=== PATIENT | female | born 1985 | race Asian ===

== ENCOUNTER 2016-09-01 02:30 | Emergency (ER) | payer OTHER ==
[~2016-09-01] VITALS: Ht 157.5 cm; Wt 61.2 kg
[~2016-09-01 02:30] MED LIST: AUGMENTIN 875-1 EAC1 ORAL
[2016-09-01] MEDS ORDERED: NKM (03:08)
[2016-09-01] MEDS ORDERED: Ketorolac 30mg Inj IV ONE (03:30)
[2016-09-01] MEDS ORDERED: Tubing IV Cassette IV ONE (03:35)
[2016-09-01 04:11] LABS: APPEARANCE,URINE CLEAR; KETONES,URINE NEGATIVE (NEGATIVE); LEUKOCYTE ESTERASE ,URINE NEGATIVE (NEGATIVE); NITRITE,URINE NEGATIVE (NEGATIVE); PH,URINE 6 (4.5-8.0); PROTEIN,URINE NEGATIVE (NEGATIVE); UROBILINOGEN,URINE NORMAL MG/DL (0.0-1.0)
[2016-09-01 04:12] LABS: BASOPHILS % (AUTO) 1.5 % (0.0-2.0); EOSINOPHILS % (AUTO) 3.2 % (0.0-3.0); LYMPHOCYTES % (AUTO) 40.6 % (20.0-45.0); MEAN CORPUSCULAR HEMOGLOBIN 29.8 PG (27.0-31.0); MEAN CORPUSCULAR HGB CONC 32.3 G/DL (32.0-36.0); MEAN CORPUSCULAR VOLUME 92 FL (80-99); MEAN PLATELET VOLUME 6.7 FL (6.5-10.1); MONOCYTES % (AUTO) 7.3 % (1.0-10.0); NEUTROPHILS % (AUTO) 47.4 % (45.0-75.0); PLATELET COUNT 327 K/UL (150-450); RED BLOOD COUNT 4.31 M/UL (4.20-5.40); RED CELL DISTRIBUTION WIDTH 11.4 % (11.6-14.8); WHITE BLOOD COUNT 8.1 K/UL (4.8-10.8)
[2016-09-01 04:23] LABS: ALANINE AMINOTRANSFERASE 35 U/L (3-33); ALBUMIN/GLOBULIN RATIO 1.2 (1.0-2.7); ANION GAP 14 (5-15); ASPARTATE AMINO TRANSFERASE 22 U/L (5-40); CALCIUM 8.8 mg/dL (8.6-10.2); CARBON DIOXIDE 26 mEQ/L (20-30); CHLORIDE 96 mEQ/L (98-107); CREATININE 0.6 mg/dL (0.5-0.9); GLOMERULAR FILTRATION RATE > 60 mL/min (>60); HEMOLYSIS 2; LIPASE 14 U/L (< 60); POTASSIUM 3.8 mEQ/L (3.4-4.9); SODIUM 136 mEQ/L (135-145); TOTAL PROTEIN 7.3 g/dL (6.6-8.7)
[2016-09-01 04:55] VITALS: BP 110/73
[2016-09-01] MEDS ORDERED: ZOFRAN4 MG ORAL (05:08)
--- NOTE | 2016-09-01 05:08 | Emergency Room Report ---
History of Present Illness General Chief Complaint: Nausea, Vomiting, and Diarrhea Source: Patient Present Illness HPI This is a 31-year-old female with no significant past medical history. She presents with chief complaint abdominal pain and vomiting. Onset for last few days. No diarrhea. No fever or chills. About 10 days ago she has some runny nose and congestion. It seemed to get better but now she is GI symptom. Has been beginning to get the same. Pain is mostly in the left side. Crampy in nature. No urinary complaint. No vaginal bleeding. Allergies: Coded Allergies: NO KNOWN ALLERGIES (Unverified Allergy, Unknown, 02/28/15) Patient History Past Medical History: none, see triage record, old chart reviewed Past Surgical History: none, other - blt Pertinent Family History: none Last Menstrual Period: 08/18/16 Now: No : 2 Para: 2 Immunizations: other Reviewed Nursing Documentation: PMH: Agreed, PSxH: Agreed Nursing Documentation-PMH Past Medical History: No Stated History Review of Systems Eye: Denies: blurred vision, eye pain ENT: Denies: ear pain, nose congestion, throat swelling Respiratory: Denies: cough, shortness of breath Cardiovascular: Denies: chest pain, palpitations Gastrointestinal: Reports: abdominal pain, nausea, vomiting, Denies: diarrhea Musculoskeletal: Denies: back pain, joint pain Skin: Denies: rash Neurological: Denies: headache, numbness Endocrine: Denies: increased thirst, increased urine Hematologic/Lymphatic: Denies: easy bruising All Other Systems: negative except mentioned in HPI Physical Exam Vital Signs Date Time Temp Pulse Resp B/P Pulse Ox O2 Delivery O2 Flow Rate FiO2 09/01/16 03:03 97.7 62 14 120/69 96 Room Air vitals normal. Sp02 EP Interpretation: reviewed, normal General Appearance: well appearing, no apparent distress, alert Head: normocephalic, atraumatic Eyes: bilateral eye EOMI, bilateral eye PERRL ENT: hearing grossly normal, normal pharynx Neck: full range of motion, supple, no meningismus Respiratory: chest non-tender, lungs clear, normal breath sounds Cardiovascular #1: regular rate, rhythm, no murmur Gastrointestinal: normal bowel sounds, no mass, no organomegaly, no bruit, non- distended, tenderness - LLQ Musculoskeletal: back normal, gait/station normal, normal range of motion Neurologic: alert, oriented x3 Psychiatric: mood/affect normal Skin: warm/dry Medical Decision Making Diagnostic Impression: Primary Impression: Abdominal pain Qualified Codes: R10.30 - Lower abdominal pain, unspecified Additional Impression: Vomiting Qualified Codes: R11.2 - Nausea with vomiting, unspecified ER Course Patient presents with nonspecific abdominal pain with vomiting. Most likely a viral gastroenteritis since her is coming down with the same symptoms. No evidence of acute abdomen. No evidence of obstruction. No surgical issue. Labs unremarkable. Patient felt better. We'll discharge him. Lab Results Impression labs normal CT/MRI/US Diagnostic Results CT/MRI/US Diagnostic Results : Imaging Test Ordered: ct a/p Impression read by radiologist as neg Last Vital Signs Date Time Temp Pulse Resp B/P Pulse Ox O2 Delivery O2 Flow Rate FiO2 09/01/16 04:55 71 14 110/73 100 Room Air 09/01/16 04:07 97.7 Status: improved Disposition: HOME, SELF-CARE Condition: Stable Scripts Ondansetron (Zofran) 4 Mg Tablet 4 MG ORAL Q6H Y for Nausea & Vomiting, #15 TAB 0 Refills Prov: DARION TAPIA M.D. 09/01/16 Patient Instructions: DIET, Vomiting or Diarrhea [6yr-Adult] Additional Instructions: Followup with your DrFranck in 2-3 days. Return if worse. DARION TAPIA M.D. Sep 01, 2016 05:08
[2016-09-01 05:23] VITALS: BP 110/73
--- NOTE | 2016-09-01 08:41 | Diagnostic Imaging Report ---
Indication: Abdominal pain Technique: Continuous helical transaxial imaging of the abdomen and pelvis was obtained from the lung bases to the pubic symphysis. No intravenous contrast was administered. Coronal 2-D reformats were also obtained. Total Dose length Product (DLP): [address] Dose Index Volume (CTDIvol): 14 mGy Comparison: none Findings: The lung bases are clear. Gallbladder is unremarkable in appearance. Accessory spleen noted. No nephrolithiasis or hydronephrosis demonstrated. Small nodes noted in the mesentery nonspecific. These are noted in the right lower quadrant. Appendix not visualized. No inflammatory changes identified to suggest acute appendicitis. There may be mild thickening of the wall the urinary bladder. Uterus noted. No free fluid identified. Impression: No acute findings appreciated. Incidental findings as discussed above. [facility] has communicated the preliminary results to the Emergency Department. Their findings are largely concordant with this report. The CT scanner at [facility] is accredited by the [employer] and the scans are performed using protocols designed to limit radiation exposure to as low as reasonably achievable to attain images of sufficient resolution adequate for diagnostic evaluation.
== END 2016-09-01 05:24 | disposition home or self-care (01) ==
LOC: EMR 03:32
DX: R10.9 Unspecified abdominal pain (principal); R11.2 Nausea with vomiting, unspecified
CPT/HCPCS: 36415; 74176; 80053; 81003; 81025; 83690; 85025; 96361; 96374; 96375; 99284; J1885; J2405

== ENCOUNTER 2016-11-16 20:54 | Emergency (ER) | payer MEDICAID, OTHER ==
[~2016-11-16] VITALS: Ht 157.5 cm; Wt 65.8 kg
[~2016-11-16 20:54] MED LIST changes: +NKM; +ZOFRAN4 MG ORAL
[2016-11-16] MEDS ORDERED: Norco 5mg/325mg tab ORAL ONE (22:15)
[2016-11-16] MEDS ORDERED: IBUPROFEN600 MG ORAL (22:16)
[2016-11-16] MEDS ORDERED: AUGMENTIN 875-1 EAC1 ORAL (22:16)
--- NOTE | 2016-11-16 22:17 | Emergency Room Report ---
History of Present Illness General Chief Complaint: Animal Bite Source: Patient Present Illness HPI Is a 31-year-old female with no past medical history. She presents with chief complaint of dog bite. She was walking with her significant other and a Labrador in the apartment unit better. She sustained a bite Mathew to the left lower back and over the left buttock. No bleeding. Pain to that area. Is a neighbor dog. The dog immunization status is unknown. The dog was not on a leash. Her tetanus is up-to-date. Allergies: Coded Allergies: NO KNOWN ALLERGIES (Unverified Allergy, Unknown, 02/28/15) Patient History Past Medical History: none, see triage record, old chart reviewed Past Surgical History: none Pertinent Family History: none Social History: Denies: smoking Now: No Immunizations: other Reviewed Nursing Documentation: PMH: Agreed, PSxH: Agreed Nursing Documentation-PMH Past Medical History: No Stated History Review of Systems Eye: Denies: blurred vision, eye pain ENT: Denies: ear pain, nose congestion, throat swelling Respiratory: Denies: cough, shortness of breath Cardiovascular: Denies: chest pain, palpitations Gastrointestinal: Denies: abdominal pain, diarrhea, nausea, vomiting Musculoskeletal: Denies: back pain, joint pain Skin: Denies: rash Neurological: Denies: headache, numbness Endocrine: Denies: increased thirst, increased urine Hematologic/Lymphatic: Denies: easy bruising All Other Systems: negative except mentioned in HPI Physical Exam Vital Signs Date Time Temp Pulse Resp B/P Pulse Ox O2 Delivery O2 Flow Rate FiO2 11/16/16 22:08 98.1 80 16 118/84 99 Room Air vitals normal Sp02 EP Interpretation: reviewed, normal General Appearance: well appearing, no apparent distress, alert Head: normocephalic, atraumatic Eyes: bilateral eye EOMI, bilateral eye PERRL ENT: hearing grossly normal, normal pharynx Neck: full range of motion, supple, no meningismus Respiratory: chest non-tender, lungs clear, normal breath sounds Cardiovascular #1: regular rate, rhythm, no murmur Gastrointestinal: normal bowel sounds, non tender, no mass, no organomegaly, no bruit, non-distended Musculoskeletal: back normal, gait/station normal, normal range of motion, other - abrasion and superficial pichardo on left lower flank. Abrasion to left inferior buttock. Psychiatric: mood/affect normal Skin: warm/dry Medical Decision Making Diagnostic Impression: Primary Impression: Dog bite of buttock Qualified Codes: S31.825A - Open bite of left buttock, initial encounter; W54.0XXA - Bitten by dog, initial encounter Additional Impression: Dog bite of trunk Qualified Codes: S21.95XA - Open bite of unspecified part of thorax, initial encounter; W54.0XXA - Bitten by dog, initial encounter ER Course Patient presents with superficial dog bite to her back and buttock. No need for laceration. Low risk for infection. The family at low risk for rabies. Animal control already called by patient. Her tetanus status up-to-date. Discharge home. Last Vital Signs Date Time Temp Pulse Resp B/P Pulse Ox O2 Delivery O2 Flow Rate FiO2 11/16/16 22:08 98.1 80 16 118/84 99 Room Air Status: improved Disposition: HOME, SELF-CARE Condition: Stable Scripts Ibuprofen* (MOTRIN*) 600 Mg Tablet 600 MG ORAL THREE TIMES A DAY, #30 TAB 0 Refills Prov: DARION TAPIA M.D. 11/16/16 Amoxicillin/Potassium Clav 875-125* (AUGMENTIN 875-125 TABLET*) 1 Each Tablet 1 TAB ORAL TWICE A DAY, #14 TAB Prov: DARION TAPIA M.D. 11/16/16 Patient Instructions: Animal Bite Additional Instructions: Keep wound clean. Followup with your DrFranck in 7 days. Return if worse. DARION TAPIA M.D. Nov 16, 2016 22:17
[2016-11-16 22:58] VITALS: BP 118/84
[2016-11-16 23:00] VITALS: BP 116/72
== END 2016-11-16 22:37 | disposition home or self-care (01) ==
LOC: EMR 22:16
DX: S31.825A Open bite of left buttock, initial encounter (principal); S21.95XA Open bite of unspecified part of thorax, initial encounter; X58.XXXA Exposure to other specified factors, initial encounter; Y93.K1 Activity, walking an animal; Y92.038 Other place in apartment as the place of occurrence of the external cause
CPT/HCPCS: 99284

== ENCOUNTER 2017-09-03 12:18 | Emergency (ER) | payer MEDICAID ==
[~2017-09-03] VITALS: Ht 157.5 cm; Wt 64.0 kg
[~2017-09-03 12:18] MED LIST changes: +IBUPROFEN600 MG ORAL
[2017-09-03 12:35] VITALS: BP 108/72
[2017-09-03 12:52] LABS: APPEARANCE,URINE CLEAR; BILIRUBIN, URINE NEGATIVE (NEGATIVE); COLOR,URINE PALE YELLOW; GLUCOSE, URINE (UA) NEGATIVE (NEGATIVE); KETONES,URINE NEGATIVE (NEGATIVE); LEUKOCYTE ESTERASE ,URINE NEGATIVE (NEGATIVE); NITRITE,URINE NEGATIVE (NEGATIVE); PH,URINE 6.5 (4.5-8.0); PROTEIN,URINE NEGATIVE (NEGATIVE); UROBILINOGEN,URINE NORMAL MG/DL (0.0-1.0)
[2017-09-03] MEDS ORDERED: Morphine Sulfate 2mg/ml Inj IVP ONE (13:00)
--- NOTE | 2017-09-03 13:01 | Emergency Room Report ---
History of Present Illness General Chief Complaint: Vomiting Source: Patient Present Illness HPI 32-year-old female presents to the emergency department complaining of 10 out of 10 in severity left adnexal tenderness with rebound, nausea vomiting and headache since yesterday. Patient states that she has a history of intermittent pelvic pain which she has had ultrasound performed 2 months ago which showed increased vascular structures and ultimately elevate vascular congestion syndrome. Patient states that her pain as a 2 days ago has more than doubled him become constant in nature which is out of character for she normally experiences. Patient denies states she's had tubal ligation. She denies discharge other than recent having OBGYN [place] exam and having clotting paste administered. pt. has had full STD testing which was negative. She was only positive for HPV. Denies fevers, chills, constipation or diarrhea. Denies recent travel, ill contacts with similar symptoms or trauma or fall. Allergies: Coded Allergies: NO KNOWN ALLERGIES (Unverified Allergy, Unknown, 02/28/15) Patient History Past Medical History: see triage record Past Surgical History: none Pertinent Family History: none Immunizations: UTD Reviewed Nursing Documentation: PMH: Agreed, PSxH: Agreed Nursing Documentation-PMH Past Medical History: No Stated History Review of Systems All Other Systems: negative except mentioned in HPI Physical Exam Vital Signs Date Time Temp Pulse Resp B/P (MAP) Pulse Ox O2 Delivery O2 Flow Rate FiO2 09/03/17 12:30 98.1 60 18 108/72 100 Room Air Sp02 EP Interpretation: reviewed, normal General Appearance: no apparent distress, alert, GCS 15, non-toxic Head: normocephalic, atraumatic Eyes: bilateral eye normal inspection, bilateral eye PERRL ENT: hearing grossly normal, no angioedema, normal voice Neck: full range of motion Respiratory: lungs clear, normal breath sounds, speaking full sentences Cardiovascular #1: regular rate, rhythm Gastrointestinal: normal bowel sounds, soft, no guarding, rebound - LLQ/ adnexal , other - LLQ tenderness and periumbillical TTP with radiation to the LLQ, no RLQ tenderness. positive rebound Rectal: deferred Musculoskeletal: back normal, gait/station normal, normal range of motion, non- tender Neurologic: alert, oriented x3, responsive, motor strength/tone normal, sensory intact, speech normal Skin: normal color, no rash, warm/dry, well hydrated Medical Decision Making PA Attestation Dr. Hobsno is my supervising Physician whom patient management has been discussed with. Diagnostic Impression: Primary Impression: Ovarian cyst Qualified Codes: N83.202 - Unspecified ovarian cyst, left side Additional Impressions: Nausea Adnexal pain ER Course 32-year-old female presents to the emergency department complaining of 10 out of 10 in severity left adnexal tenderness with rebound, nausea vomiting and headache since yesterday. Patient states that she has a history of intermittent pelvic pain which she has had ultrasound performed 2 months ago which showed increased vascular structures and ultimately elevate vascular congestion syndrome. Patient states that her pain as a 2 days ago has more than doubled him become constant in nature which is out of character for she normally experiences. Patient denies states she's had tubal ligation. She denies discharge other than recent having OBGYN Sc[place] exam and having clotting paste administered. pt. has had full STD testing which was negative. She was only positive for HPV. Denies fevers, chills, constipation or diarrhea. Denies recent travel, ill contacts with similar symptoms or trauma or fall. She received Toradol IM and 8mg Zofran just [employer]KE [employer]ER at an urgent care clinic. Ddx considered but are not limited to Diverticulitis, acute appy, ovarian torsion, ectopic , PID tubo-ovarian abscess, ovarian cyst just to name a few. Vital signs: are WNL, pt. is afebrile H&PE are most consistent with possible ovarian cyst, however due to presentation will r/o torsion, ectopic, and stone. ORDERS: -CBC, CMP, LIPASE: Unremarkable, no leukocytosis -UA: no evidence of infection. some RBC's -URINE HCG:Negative -CT Abdomen Pelvis with contrast: impression - "No acute abnormality, normal gallbladder, common bile ducts, pancreas, no diverticulosis or diverticulitis no free fluid no bowel distention.18 mm Presumed dominant follicle seen in the left ovary, the uterus and ovaries are unremarkable otherwise". Per official radiology report- Please see report for specific details. - Pelvic US: left ovarian cyst, normal flow to the bilateral ovaries, no free fluid per preliminary US Tech Report. ED INTERVENTIONS: - Zofran IV - IV Morphine -1Liter NS Bolus - Toradol IV -I discussed with this patient the results of the imaging studies in addition to lab work. I was unable to identify an acute emergent condition at this time and feel that this patient is stable for close outpatient followup and will be discharged with medications for symptomatic relief. Discussed with patient that she needs to followup with her [employer] doctor in addition to PMD. Gave patient emergency department return precautions DISCHARGE: At this time pt. is stable for d/c to home. Will provide printed patient care instructions, and any necessary prescriptions. Care plan and follow up instructions have been discussed with the patient prior to discharge. Labs Test 09/03/17 12:45 09/03/17 13:00 Urine Color Pale yellow Urine Appearance Clear Urine pH 6.5 (4.5-8.0) Urine Specific [place] 1.005 (1.005-1.035) Urine Protein Negative (NEGATIVE) Urine Glucose (UA) Negative (NEGATIVE) Urine Ketones Negative (NEGATIVE) Urine Occult Blood 5+ (NEGATIVE) Urine Nitrite Negative (NEGATIVE) Urine Bilirubin Negative (NEGATIVE) Urine Urobilinogen Normal MG/DL (0.0-1.0) Urine Leukocyte Esterase Negative (NEGATIVE) Urine RBC 10-15 /HPF (0 - 2) Urine WBC 0-2 /HPF (0 - 2) Urine Squamous Epithelial Cells Occasional /LPF Urine Bacteria Occasional /HPF (NONE) Urine HCG, Qualitative Negative White Blood Count 8.4 K/UL (4.8-10.8) Red Blood Count 4.36 M/UL (4.20-5.40) Hemoglobin 12.8 G/DL (12.0-16.0) Hematocrit 39.8 % (37.0-47.0) Mean Corpuscular Volume 91 FL (80-99) Mean Corpuscular Hemoglobin 29.4 PG (27.0-31.0) Mean Corpuscular Hemoglobin Concent 32.2 G/DL (32.0-36.0) Red Cell Distribution Width 11.4 % (11.6-14.8) Platelet Count 287 K/UL (150-450) Mean Platelet Volume 7.3 FL (6.5-10.1) Neutrophils (%) (Auto) 59.9 % (45.0-75.0) Lymphocytes (%) (Auto) 30.8 % (20.0-45.0) Monocytes (%) (Auto) 6.7 % (1.0-10.0) Eosinophils (%) (Auto) 1.7 % (0.0-3.0) Basophils (%) (Auto) 0.9 % (0.0-2.0) Sodium Level 139 MMOL/L (136-145) Potassium Level 3.9 MMOL/L (3.5-5.1) Chloride Level 104 MMOL/L (98-107) Carbon Dioxide Level 27 MMOL/L (21-32) Anion Gap 8 mmol/L (5-15) Blood Urea Nitrogen 6 mg/dL (7-18) Creatinine 0.6 MG/DL (0.55-1.30) Estimat Glomerular Filtration Rate > 60 mL/min (>60) Glucose Level 83 MG/DL (74-106) Calcium Level 7.7 MG/DL (8.5-10.1) Total Bilirubin 0.4 MG/DL (0.2-1.0) Aspartate Amino Transf (AST/SGOT) 31 U/L (15-37) Alanine Aminotransferase (ALT/SGPT) 64 U/L (12-78) Alkaline Phosphatase 63 U/L (46-116) Total Protein 7.9 G/DL (6.4-8.2) Albumin 3.9 G/DL (3.4-5.0) Globulin 4.0 g/dL Albumin/Globulin Ratio 1.0 (1.0-2.7) Lipase 70 U/L (73-393) Last Vital Signs Date Time Temp Pulse Resp B/P (MAP) Pulse Ox O2 Delivery O2 Flow Rate FiO2 09/03/17 12:35 98.1 60 18 108/72 100 Room Air Disposition: HOME, SELF-CARE Condition: Stable Scripts Tramadol Hcl* (ULTRAM*) 50 Mg Tablet 50 MG ORAL Q6H Y for For Pain, #10 TAB 0 Refills Prov: Meenu Rhodes P.A. 09/03/17 Ibuprofen* (MOTRIN*) 600 Mg Tablet 600 MG ORAL THREE TIMES A DAY, #30 TAB 0 Refills Prov: Meenu Rhodes P.A. 09/03/17 Referrals: [facility],REFERRING (PCP) Patient Instructions: Ovarian Cyst Additional Instructions: Take medications as directed. Follow up with a Primary Care Provider or OBGYN in 3-5 days, even if your symptoms have resolved. --Please review list of primary care clinics, if you do not already have a primary care provider Return sooner to ED if new symptoms occur, or current symptoms become worse. Do not drink alcohol, drive, or operate heavy machinery while taking Tramadol as this may cause drowsiness. - Please note that this Emergency Department Report was dictated using [employer] technology software, occasionally this can lead to erroneous entry secondary to interpretation by the dictation equipment. Meenu Rhodes Sep 03, 2017 13:01
[2017-09-03 13:37] LABS: BASOPHILS % (AUTO) 0.9 % (0.0-2.0); EOSINOPHILS % (AUTO) 1.7 % (0.0-3.0); HEMATOCRIT 39.8 % (37.0-47.0); HEMOGLOBIN 12.8 G/DL (12.0-16.0); LYMPHOCYTES % (AUTO) 30.8 % (20.0-45.0); MEAN CORPUSCULAR VOLUME 91 FL (80-99); MONOCYTES % (AUTO) 6.7 % (1.0-10.0); NEUTROPHILS % (AUTO) 59.9 % (45.0-75.0); PLATELET COUNT 287 K/UL (150-450); RED BLOOD COUNT 4.36 M/UL (4.20-5.40); RED CELL DISTRIBUTION WIDTH 11.4 % (11.6-14.8); WHITE BLOOD COUNT 8.4 K/UL (4.8-10.8)
[2017-09-03 13:52] LABS: ANION GAP 8 mmol/L (5-15); BLOOD UREA NITROGEN 6 mg/dL (7-18); CALCIUM 7.7 MG/DL (8.5-10.1); CARBON DIOXIDE 27 MMOL/L (21-32); CHLORIDE 104 MMOL/L (98-107); CREATININE 0.6 MG/DL (0.55-1.30); POTASSIUM 3.9 MMOL/L (3.5-5.1); SODIUM 139 MMOL/L (136-145)
[2017-09-03 13:56] LABS: ALANINE AMINOTRANSFERASE 64 U/L (12-78); ALBUMIN 3.9 G/DL (3.4-5.0); ALKALINE PHOSPHATASE 63 U/L (46-116); ASPARTATE AMINO TRANSFERASE 31 U/L (15-37); BILIRUBIN,TOTAL 0.4 MG/DL (0.2-1.0)
--- NOTE | 2017-09-03 14:51 | Diagnostic Imaging Report ---
Clinical Indication: Left lower quadrant pain and adnexal rebound Technique: No oral contrast utilized, per emergency room physician request IV administration nonionic contrast. Demonstrates obtained through the abdomen and pelvis. Multiplanar reconstructions were generated. Total dose length product 599.47 mGycm. CTDIvol(s) 12.77 mGy. Dose reduction achieved using automated exposure control Comparison: 09/01/2016 Findings: The appendix is not visualized. However, no findings to suggest acute appendicitis are evident. There is no evidence of diverticulosis or diverticulitis. No small bowel distention. No free or loculated intraperitoneal air or fluid. The distal esophagus, duodenum, stomach are unremarkable. The liver is diffusely mildly hypoattenuating, consistent with fatty change, also previously reported. No focal abnormality. The gallbladder, bile ducts, pancreas, spleen, adrenals, left kidney are unremarkable. The right kidney demonstrates a subcentimeter low-attenuation lesion which is too small to characterize. No retroperitoneal or mesenteric mass or adenopathy. 18 mm presumed dominant follicle is seen within the left ovary. The uterus and ovaries are unremarkable. The included lung bases are clear. The bones are unremarkable. Impression: No acute abnormality Fatty liver Subcentimeter low-attenuation right renal lesion #characterize, most likely benign simple cortical cysts. No further follow-up necessary The CT scanner at [facility] is accredited by the [employer] and the scans are performed using protocols designed to limit radiation exposure to as low as reasonably achievable to attain images of sufficient resolution adequate for diagnostic evaluation.
[2017-09-03] MEDS ORDERED: Morphine Sulfate 4mg/ml Inj IVP ONE (15:00)
[2017-09-03] MEDS ORDERED: Metoclopramide 10mg/2ml Inj IVP ONE (15:15)
[2017-09-03] MEDS ORDERED: IBUPROFEN600 MG ORAL (16:53)
[2017-09-03] MEDS ORDERED: TRAMADOL HCL50 MG ORAL (16:53)
[2017-09-03 17:45] VITALS: BP 107/72
== END 2017-09-03 17:45 | disposition home or self-care (01) ==
LOC: EMR 12:35
DX: N83.202 Unspecified ovarian cyst, left side (principal); K76.0 Fatty (change of) liver, not elsewhere classified; R11.0 Nausea; R10.2 Pelvic and perineal pain
CPT/HCPCS: 36415; 74177; 76830; 76856; 80053; 81003; 81025; 83690; 85025; 96361; 96374; 96375; 99284; J2270; J2765; Q9967

== ENCOUNTER 2017-11-25 00:01 | Emergency (ER) | payer MEDICAID ==
[~2017-11-25] VITALS: Ht 157.5 cm; Wt 61.7 kg
[~2017-11-25 00:01] MED LIST changes: +TRAMADOL HCL50 MG ORAL
[2017-11-25 00:30] VITALS: BP 102/67
[2017-11-25] MEDS ORDERED: Ketorolac 30mg Inj IV ONE (00:30)
--- NOTE | 2017-11-25 00:31 | Emergency Room Report ---
History of Present Illness General Chief Complaint: Flu Like Symptoms Source: Patient Present Illness HPI 32-year-old female presents with fever, chills, cough, runny nose, nausea for one week. Cough is productive with mucus. Pt still eating/drinking well. No sick contacts. No recent travel. No SOB, cp, n/v/d. Patient has been taking TheraFlu with minimal relief. Patient also states that she recently had a laparotomy for endometriosis performed 15 days ago, complaining of abdominal pain that has been mild and persistent since the surgery, not any worse Allergies: Coded Allergies: NO KNOWN ALLERGIES (Unverified Allergy, Unknown, 02/28/15) Patient History Past Medical History: see triage record Past Surgical History: none Pertinent Family History: none Last Menstrual Period: oct 22 Now: No : 2 Reviewed Nursing Documentation: PMH: Agreed; PSxH: Agreed Review of Systems All Other Systems: negative except mentioned in HPI Physical Exam Vital Signs Date Time Temp Pulse Resp B/P (MAP) Pulse Ox O2 Delivery O2 Flow Rate FiO2 11/25/17 00:07 99.8 112 18 102/67 98 Room Air 99.9 Sp02 EP Interpretation: reviewed, normal General Appearance: alert, GCS 15, non-toxic, mild distress Head: normocephalic, atraumatic Eyes: bilateral eye normal inspection, bilateral eye PERRL, bilateral eye EOMI ENT: normal ENT inspection, normal pharynx, normal voice, moist mucus membranes Neck: normal inspection, full range of motion, supple Respiratory: normal inspection, lungs clear, normal breath sounds, no respiratory distress, no retraction, no wheezing, speaking full sentences, chest symmetrical Cardiovascular #1: normal inspection, regular rate, rhythm, no edema, normal capillary refill Cardiovascular #2: 2+ radial (R), 2+ radial (L) Gastrointestinal: other - Abdomen is very soft, nontender abdomen, although patient complained of generalized pain, no guarding no rebound Musculoskeletal: normal inspection, back normal, normal range of motion, non- tender Neurologic: normal inspection, alert, oriented x3, responsive, motor strength/ tone normal, sensory intact, normal gait, speech normal Psychiatric: normal inspection, judgement/insight normal, memory normal Skin: normal inspection, normal color, no rash, warm/dry, well hydrated, normal turgor Medical Decision Making Diagnostic Impression: Primary Impression: Atypical pneumonia ER Course 32-year-old female p/w fever, chills, runny nose, cough , sore throat Appears non- toxic, well hydrated, tolerating PO DDX: Viral URI / pneumonia /UTI Another diagnosis to consider would be intra-abdominal abscess given recent surgery, however at this time abdomen is very soft nontender, shared decision making with patient, we'll not perform CT abdomen pelvis at this time Plan: Labs, hydration, chest x-ray ER course: Pt stable in ED, remains nontoxic appearing, no sob. ambulating to and from bathroom +pneumonia on XR, will dc with abx Disposition: Patient discharged to home with Tessalon Perles, Z pack, and motrin Patient instructed to follow up with PMD in 1 week. Also instructed to take motrin/tylenol at home. Very strict return precautions discussed with patient such as intractable fever and chills, unable to eat or drink, severe chest pain or shortness of breath. Patient verbalized understanding and agrees with plan. Please note that this Emergency Department Report was dictated using [employer] fixer technology software, occasionally this can lead to erroneous entry secondary to interpretation by the dictation equipment Chest X-ray CXR: Ordered: Yes 1 view Indication: Chest pain EP interpretation: Yes Interpretation: Suspicious right-sided infiltrate Impression: Right-sided infiltrate Electronically signed by Tiffanie Black MD Laboratory Tests Test 11/25/17 00:25 White Blood Count 6.0 K/UL (4.8-10.8) Red Blood Count 4.24 M/UL (4.20-5.40) Hemoglobin 12.9 G/DL (12.0-16.0) Hematocrit 37.2 % (37.0-47.0) Mean Corpuscular Volume 88 FL (80-99) Mean Corpuscular Hemoglobin 30.5 PG (27.0-31.0) Mean Corpuscular Hemoglobin Concent 34.8 G/DL (32.0-36.0) Red Cell Distribution Width 11.1 % (11.6-14.8) L Platelet Count 186 K/UL (150-450) Mean Platelet Volume 8.2 FL (6.5-10.1) Neutrophils (%) (Auto) 59.6 % (45.0-75.0) Lymphocytes (%) (Auto) 20.4 % (20.0-45.0) Monocytes (%) (Auto) 15.1 % (1.0-10.0) H Eosinophils (%) (Auto) 3.7 % (0.0-3.0) H Basophils (%) (Auto) 1.2 % (0.0-2.0) Urine Color Pale yellow Urine Appearance Clear Urine pH 8 (4.5-8.0) Urine Specific [place] 1.010 (1.005-1.035) Urine Protein Negative (NEGATIVE) Urine Glucose (UA) Negative (NEGATIVE) Urine Ketones Negative (NEGATIVE) Urine Occult Blood Negative (NEGATIVE) Urine Nitrite Negative (NEGATIVE) Urine Bilirubin Negative (NEGATIVE) Urine Urobilinogen 1 MG/DL (0.0-1.0) H Urine Leukocyte Esterase Negative (NEGATIVE) Urine HCG, Qualitative Negative (NEGATIVE) Sodium Level 136 MMOL/L (136-145) Potassium Level 3.3 MMOL/L (3.5-5.1) L Chloride Level 100 MMOL/L (98-107) Carbon Dioxide Level 26 MMOL/L (21-32) Anion Gap 10 mmol/L (5-15) Blood Urea Nitrogen 7 mg/dL (7-18) Creatinine 0.7 MG/DL (0.55-1.30) Estimate Glomerular Filtration Rate > 60 mL/min (>60) Glucose Level 107 MG/DL (74-106) H Calcium Level 8.7 MG/DL (8.5-10.1) Total Bilirubin 0.3 MG/DL (0.2-1.0) Aspartate Amino Transferase (AST) 63 U/L (15-37) H Alanine Aminotransferase (ALT) 128 U/L (12-78) H Alkaline Phosphatase 89 U/L (46-116) Total Protein 7.8 G/DL (6.4-8.2) Albumin 3.9 G/DL (3.4-5.0) Globulin 3.9 g/dL Albumin/Globulin Ratio 1.0 (1.0-2.7) Lipase 57 U/L (73-393) L Microbiology Date/Time Source Procedure Growth Status 11/25/17 00:25 Nasal Nares Influenza Types A,B Antigen (CLEVE) - Final Complete Last Vital Signs Date Time Temp Pulse Resp B/P (MAP) Pulse Ox O2 Delivery O2 Flow Rate FiO2 11/25/17 00:07 99.8 112 18 102/67 98 Room Air 99.9 Disposition: HOME, SELF-CARE Condition: Improved Scripts Azithromycin (ZITHROMAX TRI-SHELDON) 500 Mg Tablet 500 MG ORAL DAILY, #1 PACK Prov: Tiffanie Black M.D. 11/25/17 Ibuprofen* (MOTRIN*) 600 Mg Tablet 600 MG ORAL Q8H PRN for For Pain, #30 TAB 0 Refills Prov: Tiffanie Black M.D. 11/25/17 Benzonatate* (TESSALON PERLE*) 100 Mg Capsule 100 MG ORAL THREE TIMES A DAY, #21 PERLE Prov: Tiffanie Black M.D. 11/25/17 Tiffanie Black M.D. Nov 25, 2017 00:31
[2017-11-25 00:50] LABS: BASOPHILS % (AUTO) 1.2 % (0.0-2.0); EOSINOPHILS % (AUTO) 3.7 % (0.0-3.0); HEMATOCRIT 37.2 % (37.0-47.0); HEMOGLOBIN 12.9 G/DL (12.0-16.0); LYMPHOCYTES % (AUTO) 20.4 % (20.0-45.0); MEAN CORPUSCULAR VOLUME 88 FL (80-99); MONOCYTES % (AUTO) 15.1 % (1.0-10.0); NEUTROPHILS % (AUTO) 59.6 % (45.0-75.0); PLATELET COUNT 186 K/UL (150-450); RED BLOOD COUNT 4.24 M/UL (4.20-5.40); RED CELL DISTRIBUTION WIDTH 11.1 % (11.6-14.8)
[2017-11-25 00:56] LABS: APPEARANCE,URINE CLEAR; BILIRUBIN, URINE NEGATIVE (NEGATIVE); COLOR,URINE PALE YELLOW; GLUCOSE, URINE (UA) NEGATIVE (NEGATIVE); KETONES,URINE NEGATIVE (NEGATIVE); LEUKOCYTE ESTERASE ,URINE NEGATIVE (NEGATIVE); NITRITE,URINE NEGATIVE (NEGATIVE); PH,URINE 8 (4.5-8.0); PROTEIN,URINE NEGATIVE (NEGATIVE); UROBILINOGEN,URINE 1 MG/DL (0.0-1.0)
[2017-11-25 01:03] LABS: ANION GAP 10 mmol/L (5-15); BLOOD UREA NITROGEN 7 mg/dL (7-18); CALCIUM 8.7 MG/DL (8.5-10.1); CARBON DIOXIDE 26 MMOL/L (21-32); CHLORIDE 100 MMOL/L (98-107); CREATININE 0.7 MG/DL (0.55-1.30); POTASSIUM 3.3 MMOL/L (3.5-5.1); SODIUM 136 MMOL/L (136-145)
[2017-11-25 01:07] LABS: ALANINE AMINOTRANSFERASE 128 U/L (12-78); ALBUMIN 3.9 G/DL (3.4-5.0); ALKALINE PHOSPHATASE 89 U/L (46-116); ASPARTATE AMINO TRANSFERASE 63 U/L (15-37); BILIRUBIN,TOTAL 0.3 MG/DL (0.2-1.0)
[2017-11-25] MEDS ORDERED: IBUPROFEN600 MG ORAL (01:29)
[2017-11-25] MEDS ORDERED: TESSALON PERLE100 MG ORAL (01:29)
[2017-11-25 01:30] VITALS: BP 108/70
[2017-11-25] MEDS ORDERED: ZITHROMAX TRI-500 MG ORAL (01:35)
[2017-11-25 01:55] VITALS: BP 102/67
--- NOTE | 2017-11-25 11:26 | Diagnostic Imaging Report ---
Indication: Cough Technique: One view of the chest Comparison: none Findings: Lungs and pleural spaces are clear. Heart size is normal Impression: No acute process
== END 2017-11-25 01:55 | disposition home or self-care (01) ==
LOC: EMR 00:17
DX: J18.9 Pneumonia, unspecified organism (principal)
CPT/HCPCS: 36415; 71045; 80053; 81003; 81025; 83690; 85025; 86710; 96374; 96375; 99284; J1885; J2405

== ENCOUNTER 2018-05-08 20:25 | Emergency (ER) | payer MEDICAID ==
[~2018-05-08] VITALS: Ht 157.5 cm; Wt 59.0 kg
[~2018-05-08 20:25] MED LIST changes: +TESSALON PERLE100 MG ORAL; +ZITHROMAX TRI-500 MG ORAL
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
[2018-05-08] MEDS ORDERED: oxyCODONE HCL/Acetaminophen 5/325mg ORAL ONE (21:30)
[2018-05-08] MEDS ORDERED: Ketorolac 30mg Inj IM ONE (21:30)
[2018-05-08] MEDS ORDERED: NORCO 5-325 TA1 EACH ORAL (22:13)
[2018-05-08] MEDS ORDERED: CYCLOBENZAPRINE10 MG ORAL (22:14)
[2018-05-08] MEDS ORDERED: IBUPROFEN600 MG ORAL (22:14)
[2018-05-08 22:36] VITALS: BP 118/84
[2018-05-08 22:39] VITALS: BP 0/0
--- NOTE | 2018-05-09 09:57 | Diagnostic Imaging Report ---
Indication: Lower back pain Technique: 3 views of the lumbar spine Comparison: None Findings:There is minimal thoracolumbar scoliotic deformity, probably an artifact of positioning. Bony alignment is otherwise normal. Vertebral body heights are preserved. The disc spaces are preserved. Sacroiliac joint spaces are preserved. Pedicles are intact. Sacral arches are preserved Impression: Negative
== END 2018-05-08 22:40 | disposition home or self-care (01) ==
LOC: EMR 21:10
DX: M54.9 Dorsalgia, unspecified (principal); V89.2XXA Person injured in unspecified motor-vehicle accident, traffic, initial encounter; Y92.411 Interstate highway as the place of occurrence of the external cause
CPT/HCPCS: 72020; 96372; 99283; J1885